=== PATIENT | female | born 1945 | race Caucasian/White ===

== ENCOUNTER 2017-01-17 16:46 | Emergency (ER) | payer MEDICARE, OTHER ==
[~2017-01-17] VITALS: Ht 162.6 cm; Wt 97.9 kg
[~2017-01-17 16:46] MED LIST: ACEB200C9 PO; ASCO10007 PO; BIOT1TAB16 PO; CHOL400T11 PO; CYAN10009 PO; MULT1TAB69 PO; SERT-77 PO; [UNRECOGNIZED DRUG - CODE] PO
--- OUTSIDE RECORDS SUMMARY | 2017-01-17 16:50 | XMS REPORT | Referral Summary ---
Author Author Via [facility], Family Medicine Organization Via [facility]ui [facility], [facility] Address Unknown Phone Unavailable Care Team Providers Care Elementary Assistant Teacher Name Role Phone Beena Howard Primary Care Physician [phone] Encounter VC Date(s): 05/04/16 - 05/04/16 [facility], [address] [place] [address] Discharge Disposition: 01-Home or Self Care Attending Physician: Sohail Jaime APRN Admitting Physician: Sohail Jaime APRN Vital Signs Most recent to 1 oldest [Reference Range]: Temperature Tympanic 36.8 degC [36.6-38.1 degC] (05/04/16 2:11 PM) Peripheral Pulse 90 bpm Rate [60-100 bpm] (05/04/16 2:11 PM) Blood Pressure 138/72 mmHg [90-140/60-90 mmHg] (05/04/16 2:11 PM) SpO2 94 % (05/04/16 2:11 PM) Problem List Condition Effective Dates Status Health Status Informant Anemia(Confirmed) Resolved Anxiety(Confirmed) Active Atrial Active fibrillation(Confirm ed) Cataracts(Confirmed) Active Cataracts(Confirmed) Resolved Depression(Confirmed Active ) Diabetes(Confirmed) Active Thyroid Active Disease/Goiter(Confi rmed) Glaucoma(Confirmed) Resolved Hearing Active loss(Confirmed) Hypertension(Confirm Active ed) Hypothyroid(Confirme Active d) IBS(Confirmed) Active Irregular Heart Active Rhythm(Confirmed) Multiple Active sclerosis(Confirmed) Sleep Active apnea(Confirmed) chicken 1950 Active griffin(Confirmed) Allergies, Adverse Reactions, Alerts Substance Reaction Severity Status penicillin Eczema (rash) Active RASH Medications biotin 1000 mcg oral tablet 1 tabs, Oral, Daily, # 30 tabs, 0 Refill(s) Start Date: 05/09/14 Status: Ordered levothyroxine 112 mcg (0.112 mg) oral tablet 112 mcg 1 tabs, Oral, Daily, # 90 tabs, 3 Refill(s), [facility], 1 tabs Oral Daily Start Date: 08/20/15 Status: Ordered multivitamin Daily, 0 Refill(s) Start Date: 05/14/14 Status: Ordered [place] 5 mg-325 mg oral tablet See Instructions, as needed for pain, 1 tabs Oral q6hr, # 20 tabs, 0 Refill(s) Start Date: 05/04/16 Status: Ordered predniSONE 20 mg oral tablet See Instructions, 3 po qd for 3 days, 2 po qd for 3 d, 1 po qd for 3 d, 1/2 pill po qd for 2d take with food, # 19 tabs, 0 Refill(s) Start Date: 05/03/16 Status: Ordered Sectral 200 mg oral capsule 1 caps, Oral, BID, 0 Refill(s) Start Date: 05/09/14 Status: Ordered sertraline 150 mg, Oral, Daily, 0 Refill(s) Start Date: 05/09/14 Status: Ordered Vitamin B12 1000 mcg oral tablet 2 tabs, Oral, Daily, 0 Refill(s) Start Date: 05/09/14 Status: Ordered Vitamin C 500 mg oral tablet 2 tabs, Oral, Daily, 0 Refill(s) Start Date: 05/09/14 Status: Ordered Vitamin D3 400 intl units oral tablet 2 tabs, Oral, Daily, 0 Refill(s) Start Date: 05/09/14 Status: Ordered Results No data available for this section Immunizations Vaccine Date Refusal Reason influenza virus vaccine, inactivated 08/14/14 pneumococcal 23-polyvalent vaccine 09/13/03 Procedures Procedure Date Related Diagnosis Body Site Normal colonoscopy1 07/08/15 Mammogram2 03/14/15 Bilat eye surgery - narrow angle glaucoma 2008 Moved pins and aaron in Rt lower leg 2008 Painful Hardware ACC 2008 Neck Lamectomy 2007 Cervical Fusion C5 and C6 2003 HR Rt Tibia BUHR 2003 Rt lower leg aaron 2001 Hysterectomy Tubal ligation 1Sigmoid diverticulosis, [facility] positive for colon [facility], [facility] Social History Social History Type Response Smoking Status Former smoker Assessment and Plan No data available for this section
--- OUTSIDE RECORDS SUMMARY | 2017-01-17 16:50 | XMS REPORT | Referral Summary ---
Author Author [facility], [facility] Medicine Organization [facility] Doyle [facility] Address Unknown Phone Unavailable Care Team Providers Care Rim Turning Finisher Name Role Phone Beena Howard Primary Care Physician [phone] Encounter VC Date(s): 08/20/15 - 08/20/15 [facility] Doyle [facility], [address] [place] [id number] Discharge Diagnosis: Hypothyroid Discharge Diagnosis: Depression Discharge Disposition: 01-Home or Self Care Attending Physician: Fanny Howard DO Admitting Physician: Fanny Howadr DO Vital Signs Most recent to 1 oldest [Reference Range]: Temperature Tympanic 36.9 degC [36.6-38.1 degC] (08/20/15 10:41 AM) Peripheral Pulse 66 bpm Rate [60-100 bpm] (08/20/15 10:41 AM) Respiratory Rate 16 br/min [14-20 br/min] (08/20/15 10:41 AM) Blood Pressure 120/80 mmHg [90-140/60-90 mmHg] (08/20/15 10:41 AM) SpO2 98 % (08/20/15 10:41 AM) Problem List Condition Effective Dates Status Health [...] # 90 tabs, 3 Refill(s), [facility], 1 tabs Oral Daily Start Date: 08/20/15 Status: Ordered multivitamin Daily, 0 Refill(s) Start Date: 05/14/14 Status: Ordered Sectral 200 mg oral capsule [...] [facility] Social History Social History Type Response Smoking Status Former smoker Assessment and Plan Extracted from: Title: Office Visit Note Author: Fanny Howard DO Date: 08/20/15 Assessment/Plan Depression Stable, continue current medication. Ordered: Office Visit Level 4 Est 69642 Hypothyroid Stable, she is not due for labs for several months. Ordered: Office Visit Level 4 Est 96810 Lumbar pain X-ray revealed no acute process, facet arthropathy, offered patient anti-inflammatories but she declined. She would like to use heatand [place],counseled that she could also use capsaicin cream. She will return to clinic if this is not effective. Ordered: Office Visit Level 4 Est [id number] Orders: levothyroxine, 112 mcg 1 tabs, Oral, Daily, # 90 tabs, 3 Refill(s), [facility]acy: [facility], 1 tabs Oral Daily
--- OUTSIDE RECORDS SUMMARY | 2017-01-17 16:50 | XMS REPORT | Referral Summary ---
Author Author Via [facility], Family Medicine Organization Via [facility] Bui [facility] Address Unknown Phone Unavailable Care Team Providers Care Dental Laboratory Manager Name Role Phone Beena Howard Primary Care Physician [phone] Encounter VC Date(s): 05/26/16 - 05/26/16 [facility] Doyle [place], [address] [place] [address] Discharge Disposition: 01-Home or Self Care Attending Physician: Sohail Jaime APRN Admitting Physician: Sohail Jaime APRN Referring Physician: Sohail Jaime APRN Vital Signs Most recent to 1 oldest [Reference Range]: Peripheral Pulse 72 bpm Rate [60-100 bpm] (05/26/16 8:22 AM) Respiratory Rate 18 br/min [14-20 br/min] (05/26/16 8:22 AM) Blood Pressure 118/78 mmHg [90-140/60-90 mmHg] (05/26/16 8:22 AM) SpO2 95 % (05/26/16 8:22 AM) Problem List Condition Effective Dates Status [...] 0 Refill(s) Start Date: 05/14/14 Status: Ordered [place] 5 mg-325 mg oral tablet See Instructions, [...] [facility] Social History Social History Type Response Smoking Status Former smoker Assessment and Plan No data available for this section
--- OUTSIDE RECORDS SUMMARY | 2017-01-17 16:50 | XMS REPORT | Referral Summary ---
Author Author Via [facility], Family Medicine Organization Via Dan[facility]BL[facility] Bui [facility], [facility] Address Unknown Phone Unavailable Care Team Providers Care Brazing Machine Operator Name Role Phone Beena Howard Primary Care Physician [phone] Encounter VC Date(s): 05/11/16 - 05/11/16 [facility] Doyle [place], [address] [place] [address] Discharge Disposition: 01-Home or Self Care Attending Physician: Sohail Jaime APRN Admitting Physician: Sohail Jaime APRN Referring Physician: Silas Granda III, MD Vital Signs Most recent to 1 oldest [Reference Range]: Peripheral Pulse 65 bpm Rate [60-100 bpm] (05/11/16 12:58 PM) Respiratory Rate 18 br/min [14-20 br/min] (05/11/16 12:58 PM) Blood Pressure 122/70 mmHg [90-140/60-90 mmHg] (05/11/16 12:58 PM) SpO2 95 % (05/11/16 12:58 PM) Problem List Condition Effective Dates Status [...] Daily, # 90 tabs, 3 Refill(s), Pharmacy: [facility], 1 tabs Oral Daily Start Date: 08/20/15 Status: Ordered multivitamin Daily, 0 Refill(s) Start Date: 05/14/14 Status: Ordered [place] 5 mg-325 mg oral tablet See Instructions, [...] Refill(s) Start Date: 05/09/14 Status: Ordered Results Hematology Most recent to 1 oldest [Reference Range]: WBC [4.8-10.8 17.2 10*3/uL 10*3/uL] *HI* (05/11/16 1:42 PM) RBC [4.00-5.20] 4.86 (05/11/16 1:42 PM) Hgb [12.0-16.0 14.2 gm/dL gm/dL] (05/11/16 1:42 PM) Hct [37.0-47.0 %] 44.6 % (05/11/16 1:42 PM) MCV [82.0-99.0 fL] 91.8 fL (05/11/16 1:42 PM) MCH [27.0-32.0 pg] 29.2 pg (05/11/16 1:42 PM) MCHC [32.0-36.0 31.8 gm/dL gm/dL] *LOW* (05/11/16 1:42 PM) RDW [11.5-14.5 %] 14.6 % *HI* (05/11/16 1:42 PM) Platelet [150-400 295 10*3/uL 10*3/uL] (05/11/16 1:42 PM) MPV [8.8-14.8 fL] 9.8 fL (05/11/16 1:42 PM) Immature 1.3 % Granulocytes *HI* [0.0-1.0 %] (05/11/16 1:42 PM) Neutrophils [51-75 74 % %] (05/11/16 1:42 PM) Lymphocytes [20-46 17 % %] *LOW* (05/11/16 1:42 PM) Monocytes [4-11 %] 7 % (05/11/16 1:42 PM) Eosinophils [0-4 %] 1 % (05/11/16 1:42 PM) Basophils [0-2 %] 0 % (05/11/16 1:42 PM) Neutro Absolute 12.68 10*3 [1.90-7.00 10*3] *HI* (05/11/16 1:42 PM) Lymph Absolute 2.84 10*3 [0.80-3.30 10*3] (05/11/16 1:42 PM) [place] Absolute 1.17 10*3 [0.30-1.00 10*3] *HI* (05/11/16 1:42 PM) Eos Absolute 0.16 10*3 [0.00-0.50 10*3] (05/11/16 1:42 PM) Baso Absolute 0.07 10*3 [0.00-0.20 10*3] (05/11/16 1:42 PM) Chemistry Most recent to 1 oldest [Reference Range]: Sodium Lvl [135-144 136 mEq/L mEq/L] (05/11/16 2:05 PM) Potassium Lvl 5.0 mEq/L [3.5-5.2 mEq/L] (05/11/16 2:05 PM) Chloride [99-111 98 mEq/L mEq/L] *LOW* (05/11/16 2:05 PM) CO2 [22-31 mEq/L] 28 mEq/L (05/11/16 2:05 PM) AGAP [3-20] 10 (05/11/16 2:05 PM) BUN [10-20 mg/dL] 22 mg/dL *HI* (05/11/16 2:05 PM) Glucose Lvl [70-99 196 mg/dL mg/dL] *HI* (05/11/16 2:05 PM) Creatinine Lvl 1.00 mg/dL [0.57-1.11 mg/dL] (05/11/16 2:05 PM) eGFR [>60 mL/min] 54 mL/min 1 *ABN* (05/11/16 2:05 PM) Calcium Lvl 9.4 mg/dL [8.9-10.5 mg/dL] (05/11/16 2:05 PM) 1Result Comment: Multiply eGFR results by 1.21 for race. Urinalysis Most recent to 1 oldest [Reference Range]: UA Color Yellow (05/11/16 2:05 PM) UA Appear Clear (05/11/16 2:05 PM) UA pH [5.0-8.0] 6.0 (05/11/16 2:05 PM) UA Leuk Est Pos 1+ [Negative] *ABN* (05/11/16 2:05 PM) UA Nitrite Negative [Negative] (05/11/16 2:05 PM) UA Protein Negative [Negative] (05/11/16 2:05 PM) UA Glucose Negative [Negative] (05/11/16 2:05 PM) UA Ketones Negative [Negative] (05/11/16 2:05 PM) UA Urobilinogen 0.2 mg/dL [<1.0 mg/dL] (05/11/16 2:05 PM) UA Bili [Negative] Negative (05/11/16 2:05 PM) UA Blood [Negative] Negative (05/11/16 2:05 PM) UA Spec Grav 1.020 [1.003-1.030] (05/11/16 2:05 PM) Type Clean Catch (05/11/16 2:05 PM) UA WBC [0-4] 5-10 *ABN* (05/11/16 2:05 PM) UA RBC [0-4] 0-4 (05/11/16 2:05 PM) Epithelial Cells 2-5 (05/11/16 2:05 PM) UA Hyal Cast [0-3] 1-3 (05/11/16 2:05 PM) Immunizations Vaccine Date Refusal Reason influenza virus [...] Tibia BUHR 2003 Rt lower leg aaron 2000 Hysterectomy Tubal ligation 1Sigmoid diverticulosis, father positive for colon [facility], [facility] Social History Social History Type Response Smoking Status Former smoker Assessment and Plan No data available for this section
--- OUTSIDE RECORDS SUMMARY | 2017-01-17 16:50 | XMS REPORT | Referral Summary ---
Author Author Via [facility] Doyle [facility], Family Medicine Organization Via Dan[facility]BL[facility] Bui [facility] Address Unknown Phone Unavailable Care Team Providers Care Network/Telecom Engineer Name Role Phone Beena Howard Primary Care Physician [phone] Encounter VC Date(s): 02/25/16 - 02/25/16 Via BLANCA Doyel [facility], [address] [place] [address] Discharge Disposition: 01-Home or Self Care Attending Physician: Sohail Jaime APRN Admitting Physician: Sohail Jaime APRN Vital Signs Most recent to 1 oldest [Reference Range]: Temperature Tympanic 36.8 degC [36.6-38.1 degC] (02/25/16 8:05 AM) Peripheral Pulse 69 bpm Rate [60-100 bpm] (02/25/16 8:05 AM) Respiratory Rate 16 br/min [14-20 br/min] (02/25/16 8:05 AM) Blood Pressure 130/70 mmHg [90-140/60-90 mmHg] (02/25/16 8:05 AM) SpO2 98 % (02/25/16 8:05 AM) Problem List Condition Effective Dates Status [...] Refill(s) Start Date: 05/09/14 Status: Ordered Results Chemistry Most recent to 1 oldest [Reference Range]: Sodium Lvl [135-144 141 mEq/L mEq/L] (02/25/16 8:56 AM) Potassium Lvl 4.5 mEq/L [3.5-5.2 mEq/L] (02/25/16 8:56 AM) Chloride [99-111 101 mEq/L mEq/L] (02/25/16 8:56 AM) CO2 [22-31 mEq/L] 29 mEq/L (02/25/16 8:56 AM) AGAP [3-20] 11 (02/25/16 8:56 AM) BUN [10-20 mg/dL] 10 mg/dL (02/25/16 8:56 AM) Glucose Lvl [70-99 139 mg/dL mg/dL] *HI* (02/25/16 8:56 AM) Creatinine Lvl 0.72 mg/dL [0.57-1.11 mg/dL] (02/25/16 8:56 AM) eGFR [>60 mL/min] >60 mL/min 1 (02/25/16 8:56 AM) Calcium Lvl 9.6 mg/dL [8.9-10.5 mg/dL] (02/25/16 8:56 AM) Chol [0-199 mg/dL] 168 mg/dL (02/25/16 8:56 AM) Trig [0-149 mg/dL] 141 mg/dL (02/25/16 8:56 AM) HDL [40-84 mg/dL] 45 mg/dL (02/25/16 8:56 AM) LDL [0-130 mg/dL] 95 mg/dL (02/25/16 8:56 AM) VLDL Cholesterol 28 mg/dL [0-28 mg/dL] (02/25/16 8:56 AM) Cardiac Risk 3.7 [0.0-5.0] (02/25/16 8:56 AM) TSH with Reflex Free 3.59 T4 [0.35-4.94] (02/25/16 8:56 AM) Hgb A1c [4.1-5.6 %] 6.5 % *HI* (02/25/16 8:56 AM) eAvg Glucose 139.9 mg/dL (02/25/16 8:56 AM) 1Result Comment: Multiply eGFR results by 1.21 for race. Immunizations Vaccine Date Refusal Reason influenza virus [...] for [facility], [facility] Social History Social History Type Response Smoking Status Former smoker Assessment and Plan No data available for this section
--- OUTSIDE RECORDS SUMMARY | 2017-01-17 16:50 | XMS REPORT | Referral Summary ---
Author Author [facility] Organization [facility] Address Unknown Phone Unavailable Care Team Providers Care Biological Inspector Name Role Phone Beena Howard Primary Care Physician [phone] Encounter VC Date(s): 05/03/16 - 05/03/16 [facility] [address] [place] [address] Discharge Diagnosis: Acute low back pain Discharge Diagnosis: Chronic lower back pain Discharge Disposition: 01-Home or Self Care Attending Physician: Nilton Edmond DO Admitting Physician: Nilton Edmond DO Vital Signs Most recent to 1 oldest [Reference Range]: Temperature Oral 36.7 degC [35.8-37.3 degC] (05/03/16 12:42 PM) Peripheral Pulse 75 bpm Rate [60-100 bpm] (05/03/16 5:22 PM) Respiratory Rate 18 br/min [14-20 br/min] (05/03/16 5:22 PM) Blood Pressure 134/54 mmHg [90-140/60-90 mmHg] (05/03/16 5:22 PM) SpO2 93 % (05/03/16 5:22 PM) Problem List Condition Effective Dates Status [...] # 90 tabs, 3 Refill(s), [facility], 1 tabs Oral Daily Start Date: 08/20/15 Status: Ordered multivitamin Daily, 0 Refill(s) Start Date: 05/14/14 Status: Ordered [place] 5 mg-325 mg oral tablet 1 tabs, Oral, q6hr, as needed for pain, X 2 days, # 8 tabs, 0 Refill(s) Start Date: 05/03/16 Stop Date: 05/05/16 Status: Ordered predniSONE 20 mg oral tablet [...] [facility] Social History Social History Type Response Smoking Status Former smoker Assessment and Plan No data available for this section
--- OUTSIDE RECORDS SUMMARY | 2017-01-17 16:50 | XMS REPORT | Referral Summary ---
Author Author [facility] Doyle [facility], Family Medicine Organization Via BLAN[facility] Doyle [facility] Address Unknown Phone Unavailable Care Team Providers Care Typing Checker Name Role Phone Beena Howard Primary Care Physician [phone] Encounter VC Date(s): 08/20/15 - 08/20/15 [facility] Doyle [facility], [address] [place] [address] Discharge Diagnosis: Hypothyroid Discharge Diagnosis: Depression Discharge Disposition: 01-Home or Self Care Attending Physician: Fanny Howard DO Admitting Physician: Fanny Howard DO Vital Signs Most recent to 1 [...] # 90 tabs, 3 Refill(s), [facility], 1 tabs Oral Daily Start [...] [facility], [facility] Social History Social History Type Response Smoking Status Former smoker Assessment and Plan Extracted from: Title: Office Visit Note Author: Fanny Howard DO Date: 08/20/15 Assessment/Plan Depression Stable, continue current medication. Ordered: Office Visit Level 4 Est 49352 Hypothyroid Stable, she is not due for labs for several months. Ordered: Office Visit Level 4 Est 57671 Lumbar pain X-ray revealed no acute process, facet arthropathy, offered patient anti-inflammatories but she declined. She would like to use heatand [place],counseled that she could also use capsaicin cream. She will return to clinic if this is not effective. Ordered: Office Visit Level 4 Est 77741 Orders: levothyroxine, 112 mcg 1 tabs, Oral, Daily, # 90 tabs, 3 Refill(s), [facility]acy: [facility], 1 tabs Oral Daily
--- OUTSIDE RECORDS SUMMARY | 2017-01-17 16:50 | XMS REPORT | Referral Summary ---
Author Author [facility], Surgery Organization [facility] Doyle, [facility] Address Unknown Phone Unavailable Care Team Providers Care Rocket Motor Mechanic Name Role Phone Beena Howard Primary Care Physician [phone] Encounter VC Date(s): 07/08/15 - 07/08/15 [facility] Doyle, [facility], Surgery [address] [place] [address] [place] [address] Discharge Disposition: 01-Home or Self Care Attending Physician: En Miles MD Admitting Physician: En Miles MD Vital Signs No data available for this section Problem List Condition Effective Dates Status Health [...] Daily, # 90 tabs, 3 Refill(s), Pharmacy: [facility], 1 tabs Oral Daily Start [...] Procedures Procedure Date Related Diagnosis Body Site Colonoscopy, flexible; diagnostic, including 07/08/15 collection of specimen(s) by brushing or washing, when performed (separate procedure) Normal colonoscopy1 07/08/15 Mammogram2 03/14/15 Bilat eye surgery - narrow angle glaucoma 2008 Moved pins and aaron in Rt lower leg 2008 Painful Hardware ACC 2008 Neck Lamectomy 2007 Cervical Fusion C5 and C6 2003 HR Rt Tibia BUHR 2003 Rt lower leg aaron 2000 Hysterectomy Tubal ligation 1Sigmoid diverticulosis, [facility] positive for colon [facility], [facility] Social History Social History Type Response Smoking Status Former smoker Assessment and Plan No data available for this section
--- OUTSIDE RECORDS SUMMARY | 2017-01-17 16:50 | XMS REPORT | Referral Summary ---
Author Author [facility], Family Medicine Organization [facility] Bui [facility] Address Unknown Phone Unavailable Care Team Providers Care Director Of Epidemiology Name Role Phone Beena Howard Primary Care Physician [phone] Encounter VC Date(s): 03/02/16 - 03/02/16 [facility] Doyle [facility], [address] [place] [address] Discharge Disposition: 01-Home or Self Care Attending Physician: Sohail Jaime APRN Admitting Physician: Sohail Jaime APRN Vital Signs Most recent to 1 oldest [Reference Range]: Peripheral Pulse 69 bpm Rate [60-100 bpm] (03/02/16 9:29 AM) Blood Pressure 135/60 mmHg [90-140/60-90 mmHg] (03/02/16 9:29 AM) SpO2 97 % (03/02/16 9:29 AM) Problem List Condition Effective Dates Status [...] Daily, # 90 tabs, 3 Refill(s), Pharmacy: [facility], 1 tabs Oral Daily Start [...] [facility], [facility] Social History Social History Type Response Smoking Status Former smoker Assessment and Plan No data available for this section
--- OUTSIDE RECORDS SUMMARY | 2017-01-17 16:50 | XMS REPORT | Referral Summary ---
Author Author [facility], Family Medicine Organization [facility] Address Unknown Phone Unavailable Care Team Providers Care Spray Dyer Name Role Phone Beena Howard Primary Care Physician [phone] Encounter VC Date(s): 04/19/15 - 04/19/15 [facility], [address] [place] [id number] Discharge Diagnosis: Diabetes Discharge Diagnosis: Depression Discharge Diagnosis: Skin lesion Discharge Diagnosis: Sleep apnea Discharge Disposition: 01-Home or Self Care Attending Physician: Gem Romero MD Admitting Physician: Gem Romero MD Vital Signs Most recent to 1 oldest [Reference Range]: Temperature Tympanic 36.9 degC [36.6-38.1 degC] (04/19/15 8:32 AM) Peripheral Pulse 72 bpm Rate [60-100 bpm] (04/19/15 8:32 AM) Respiratory Rate 17 br/min [14-20 br/min] (04/19/15 8:32 AM) Blood Pressure 128/68 mmHg [90-140/60-90 mmHg] (04/19/15 8:32 AM) Problem List Condition Effective Dates Status [...] for colon cancer, repeat in 5 years [facility] Social History Social History Type Response Smoking Status Former smoker Assessment and Plan Extracted from: Title: Ambulatory Patient Education Author: Gem Romero MD Date: 04/19/15 Family Medicine Diabetes Meal Planning Guide The diabetes meal planning guide is a tool to help you plan your meals and snacks. It is important for people with diabetes to manage their blood glucose ( sugar ) levels. Choosing the right foods and the right amounts throughout your day will help control your blood glucose. Eating right can even help you improve your blood pressure and reach or maintain a healthy weight. CARBOHYDRATE COUNTING MADE EASY When you eat carbohydrates, they turn to sugar. This raises your blood glucose level. Counting carbohydrates can help you control this level so you feel better. When you plan your meals by counting carbohydrates, you can have more flexibility in what you eat and balance your medicine with your food intake. Carbohydrate counting simply means adding up the total amount of carbohydrate grams in your meals and snacks. Try to eat about the same amount at each meal. Foods with carbohydrates are listed below. Each portion below is 1 carbohydrate serving or 15 grams of carbohydrates. Ask your supervisor metal cans how many grams of carbohydrates you should eat at each meal or snack. Grains and Starches 1 slice bread. Austrian muffin or hotdog/hamburger bun. cup cold cereal (unsweetened). cup cooked pasta or rice. cup starchy vegetables (corn, potatoes, peas, beans, winter squash). 1 tortilla (6 inches). bagel. 1 waffle or pancake (size of a CD). cup cooked cereal. 4 to 6 small crackers. *Whole grain is recommended. Fruit 1 cup fresh unsweetened berries, melon, papaya, pineapple. 1 small fresh fruit. banana or mey. cup fruit juice (4 oz unsweetened). cup canned fruit in natural juice or water. 2 tbs dried fruit. 12 to 15 grapes or cherries. Milk and Yogurt 1 cup fat-free or 1% milk. 1 cup soy milk. 6 oz light yogurt with sugar-free sweetener. 6 oz low-fat soy yogurt. 6 oz plain yogurt. Vegetables 1 cup raw or cup cooked is counted as 0 carbohydrates or a "free" food. If you eat 3 or more servings at 1 meal, count them as 1 carbohydrate serving. Other Carbohydrates oz chips or pretzels. cup ice cream or frozen yogurt. cup sherbet or sorbet. 2 inch square cake, no frosting. 1 tbs honey, sugar, jam, jelly, or syrup. 2 small cookies. 3 squares of roxanne crackers. 3 cups popcorn. 6 crackers. 1 cup broth-based soup. Count 1 cup casserole or other mixed foods as 2 carbohydrate servings. Foods with less than 20 calories in a serving may be counted as 0 carbohydrates or a "free" food. You may want to purchase a book or computer software that lists the carbohydrate gram counts of different foods. In addition, the nutrition facts panel on the labels of the foods you eat are a good source of this information. The label will tell you how big the serving size is and the total number of carbohydrate grams you will be eating per serving. Divide this number by 15 to obtain the number of carbohydrate servings in a portion. Remember, 1 carbohydrate serving equals 15 grams of carbohydrate. SERVING SIZES Measuring foods and serving sizes helps you make sure you are getting the right amount of food. The list below tells how big or small some common serving sizes are. 1 oz.........4 stacked dice. 3 oz.........Deck of cards. 1 tsp........Tip of little finger. 1 tbs........Thumb. 2 tbs........Golf ball. cup.......Half of a fist. 1 cup........A fist. SAMPLE DIABETES MEAL PLAN Below is a sample meal plan that includes foods from the grain and starches, dairy, vegetable, fruit, and meat groups. A supervisor metal cans can individualize a meal plan to fit your calorie needs and tell you the number of servings needed from each food group. However, controlling the total amount of carbohydrates in your meal or snack is more important than making sure you include all of the food groups at every meal. You may interchange carbohydrate containing foods (dairy, starches, and fruits). The meal plan below is an example of a 2000 calorie diet using carbohydrate counting. This meal plan has 17 carbohydrate servings. Breakfast 1 cup oatmeal (2 carb servings). cup light yogurt (1 carb serving). 1 cup blueberries (1 carb serving). cup almonds. Snack 1 large apple (2 carb servings). 1 low-fat string cheese stick. Lunch Chicken breast salad. 1 cup spinach. cup chopped tomatoes. 2 oz chicken breast, sliced. 2 tbs low-fat Gabonese dressing. 12 whole-wheat crackers (2 carb servings). 12 to 15 grapes (1 carb serving). 1 cup low-fat milk (1 carb serving). Snack 1 cup carrots. cup hummus (1 carb serving). Dinner 3 oz broiled salmon. 1 cup brown rice (3 carb servings). Snack 1 cups steamed broccoli (1 carb serving) drizzled with 1 tsp olive oil and lemon juice. 1 cup light pudding (2 carb servings). DIABETES MEAL PLANNING WORKSHEET Your supervisor metal cans can use this worksheet to help you decide how many servings of foods and what types of foods are right for you. BREAKFAST Food Group and Servings / Carb Servings Grain/Starches Dairy Vegetable Fruit Meat Fat LUNCH Food Group and Servings / Carb Servings Grain/Starches Dairy Fruit Meat Fat DINNER Food Group and Servings / Carb Servings Grain/Starches Dairy Fruit Meat Fat SNACKS Food Group and Servings / Carb Servings Grain/Starches Dairy Vegetable Fruit Meat Fat DAILY TOTALS Starches Vegetable Fruit Dairy Meat Fat Document Released: 07/08/2006 Document Revised: 01/02/2013 Document Reviewed: [employer] Patient Information [address] [place] [address]. No follow up information was provided. Extracted from: Title: Office Visit Note Author: Gem Romero MD Date: 04/19/15 Assessment/Plan Depression Diabetes Recheck in 6 months. Skin lesion appt with Dr. Sanches for lesion removal. Sleep apnea
[2017-01-17 16:57] VITALS: Ht 162.6 cm; Wt 97.9 kg
--- NOTE | 2017-01-17 17:24 | NUR ---
RADIOLOGY PT TO RADIOLOGY PER WC
--- NOTE | 2017-01-17 17:36 | NUR ---
ROOM PT RETURNED FROM [facility] TO [facility] AT THIS TIME.
[2017-01-17] MEDS ORDERED: CARB15DR82 OP (17:53)
[2017-01-17] MEDS ORDERED: TURM500C8 PO (17:53)
--- NOTE | 2017-01-17 18:03 | ERPDOC ---
Departure Disposition Decision Date: Jan 17, 2017 Disposition Decision Time: 18:57 Disposition: 01 DISCHARGED HOME, SELF-CARE Impression Impression Impression: Primary Impression: Closed fracture of right proximal humerus Encounter type: initial encounter Fracture morphology: other fracture Fracture alignment: nondisplaced Qualified Codes: S42.294A - Other nondisplaced fracture of upper end of right humerus, initial encounter for closed fracture Severity: Moderate Condition: Stable Seen By: Physician only Referrals: DOMINIC JOHNSON DO (Family) BOLIVAR OROZCO Call the office on Wednesday for Wednesday appointment Patient Instructions: Proximal Humerus Fracture (ED) Problems/Meds/Labs Reviewed?: Yes Medications reviewed and manag: Yes Follow up care ordered?: Yes Mental Status: Alert, Oriented Scripts Hydrocodone/Acetaminophen ([place] 5-325 Tablet) 5-325 Tablet 1-2 TAB PO Q6H Y for PAIN, #30 TAB Prov: CHARITO RAMIREZ MD 01/17/17 HPI - Fall/Injury General Chief Complaint: Fall Stated Complaint: FALL, PAIN R ARM Time Seen by Provider: 18:02 Source: patient, family Exam Limitations: no limitations HPI - Fall/Injury Initial Comments Patient is a 71-year-old female presents to respiratory for evaluation of right upper extremity pain. Patient was a daughter's house tripped and fell on outstretched arm. Patient had immediate pain in her shoulder and forearm, drove to [place] and decided to present to the ER for evaluation. Pain currently 8/10 Occurred At: other (daughter's house) Onset: Rapid Duration: 1 hr Pain Scale: Now & Worst: 8/10 Injuries/Pain Location: upper extremity 1 - Pain 2 - Pain Context: lost balance Loss of Consciousness: no loss of consciousness Allergies: Coded Allergies: Penicillins (Verified Allergy, Unknown, SKIN RASH, 03/25/10) Tetanus Vaccines & Toxoid (Verified Allergy, Unknown, 03/25/10) Past History Past Medical History Metabolic: hypothyroidism ENMT: sleep apnea Cardiac: A-fib Neurological: multiple sclerosis Musculoskeletal: osteoarthritis Psychological: anxiety, depression Surgical History General: back, gallbladder, neck Reproductive/: hysterectomy, tubal ligation Vaccines Hx Influenza Vaccination: Yes (FALL 2013) Hx Pneumococcal Vaccination: Yes (WITHIN PAST 5 YEARS) Social History Smoking Status: Former smoker Substance Use Type: does not use Alcohol Intake: occasionally Review of Systems Constitutional Constitutional: DENIES: chills, dizziness, fever Eyes Vision: DENIES: blurring, double vision, loss of visual castillo ENMT Sinuses: DENIES: congestion Mouth/Throat: DENIES: sore throat Cardiovascular Cardiac: DENIES: chest pain, dyspnea on exertion Pulmonary Respiratory: DENIES: cough, dyspnea, sputum, tachypnea GI Upper Abdomen: DENIES: nausea, pain, vomiting Lower Abdomen: DENIES: constipation, diarrhea, pain Musculoskeletal General: see HPI Endocrine Endocrine: DENIES: heat/cold intolerance Physical Exam General General Nourishment: well nourished, well developed, obese General Body Habitus: well groomed Vitals and Pain First Documented Vital Signs Date Time Temp Pulse Resp B/P Pulse Ox O2 Delivery O2 Flow Rate FiO2 01/17/17 16:57 97.6 77 20 174/81 95 Room Air Weight: Kilograms: 97.900 Height (feet): 5 Height (inches): 4.00 Triage Pain Scale: RN VS reviewed by Provider: Yes Eyes (brief) Eyes Brief: found: EOMI ENMT (brief) ENMT Brief: FOUND: mucosa moist, normal dentition, NOT FOUND: nasal erythema, pharnyx erythema, tonsillar deviation Neck (brief) Neck: NOT FOUND: adenopathy, spasm, tenderness Respiratory (brief) Respiratory: FOUND: clear all castillo, equal bilaterally, NOT FOUND: rales, wheezes Cardiovascular (brief) Cardiac: FOUND: regular rate, regular rhythm Capillary Refill: <2 sec Abdomen (brief) Abdominal Brief: FOUND: bowel normo active x4, soft, NOT FOUND: distended, tender Lymphatic (brief) Lymphatic Brief: NOT FOUND: adenopathy Musculoskeletal (brief) Musculoskeletal Brief: NOT FOUND: spasm, tenderness Fastrak Hand/Forearm Hand/Forearm : Upper Extremity: Right Elbow: NOT FOUND: deformity, ecchymosis, erythema, swelling Forearm: other (tenderness to palpation), pronation intact, supination intact, NOT FOUND: deformity, ecchymosis, erythema, swelling, tender Wrist: NOT FOUND: ecchymosis, erythema, swelling Hand: NOT FOUND: ecchymosis, erythema, swelling Fingers: NOT FOUND: impaired abduction, impaired adduction, impaired extension, impaired flexion, impaired grasp, rotational deformity Radial Pulse: 2+ Ulnar Pulse: 2+ Fastrak Shoulder Shoulder : Shoulder: Right Inspection: NOT FOUND asymmetry, NOT FOUND deformity Palpation: FOUND tenderness (surgical neck), NOT FOUND empty shoulder socket , NOT FOUND infraspinatus, NOT FOUND muscular spasm teres minor, NOT FOUND subscapularis, NOT FOUND supraspinatus Motion: FOUND ROM limited ext. rotation, FOUND ROM limited extension, NOT FOUND ROM limited flexion, NOT FOUND impingement sign Integumentary (brief) Integumentary Brief: FOUND: dry, pink, warm Neurologic (brief) Neurological Brief: FOUND: motor-no gross deficits, sensory-no gross deficits Psychiatric (brief) Psychiatric Brief: FOUND: alert, oriented Differential Diagnoses Considering: Dislocation, Fracture, Sprain, Strain Progress Results/Orders Orders Procedure Category Date Status Time Humerus Right 2 View RAD 01/17/17 Resulted 17:10 Hydrocodone/Acetaminophen PHA 01/17/17 Complete ([place] 7.5/325 18:30 Radius/Ulna Right 2 RAD 01/17/17 Resulted View 18:17 Hydrocodone/Apap PHA 01/17/17 Complete 5/325 Prepack ([place] 5 19:15 Sling EDM 01/17/17 Transmitted 19:02 Medications Current ED Medications Acetaminophen/ Hydrocodone Bitart ([place] 7.5/325) 1 tab O ONCE PO Last administered on 01/17/17t 18:30; Start 01/17/17 at 18:30; Stop 01/17/17 at 18:31 ; Status DC Acetaminophen/ Hydrocodone Bitart ([place] 5 (PrePack)) 1 pack O ONCE SENT HOME Last administered on 01/17/17t 19:28; Start 01/17/17 at 19:15; Stop 01/17/17 at 19:16; Status DC Progress Progress Discussed case with Bolivar Hudson, shoulder immobilizer pain control have patient call the office tomorrow for follow-up appointment on Wednesday Xray Xray #1: Xray: Humerus R Interpretation: Abnormal, Interpreted by Me (surgical neck fracture) Xray #2: Xray: Radius/Ulna R Interpretation: Normal, Interpreted by Me (no acute fractures or dislocations noted) CHARITO RAMIREZ MD Jan 17, 2017 18:03
--- NOTE | 2017-01-17 18:16 | NUR ---
PROVIDER DR. RAMIREZ AT BEDSIDE FOR EXAM.
--- NOTE | 2017-01-17 18:31 | NUR ---
XRAY PT TO XRAY BY W/C AT THIS TIME.
--- NOTE | 2017-01-17 18:45 | NUR ---
RETURN PT RETURNED TO [facility] BY W/C AT THIS TIME.
--- NOTE | 2017-01-17 18:55 | NUR ---
PROVIDER DR. RAMIREZ AT BEDSIDE TO SPEAK WITH PT.
[2017-01-17] MEDS ORDERED: HYDR-4246 PO (18:59)
[2017-01-17] MEDS ORDERED: HYDROCODONE/APAP 5/325 (PrePack) SENT HOME ONE (19:15)
[2017-01-17 19:28] VITALS: BP 146/70; PULSE 63; RESP 18; TEMP 97.6; O2SAT 94
--- NOTE | 2017-01-17 19:28 | NUR ---
DEPART PT AND SPOUSE GIVEN DI FOR PROXIMAL HUMERUS FRACTURE, NORCO, AND F/U. PREPAK/RX PROVIDED FOR NORCO. BOTH VERBALIZE UNDERSTANDING OF DI AND NEED FOR F/U. QUESTIONS ASKED/ANSWERED - DENIES FURTHER QUESTIONS/NEEDS AT THIS TIME. RIGHT ARM PLACED IN SLING. PT ESCORTED TO ED EXIT VIA WHEEL CHAIR AND ASSISTED TO PRIVATE VEHICLE - ASSIST X1. GAIT STABLE FROM WHEEL CHAIR TO PRIVATE VEHICLE. NO SIGN OF DISTRESS.
--- NOTE | 2017-01-17 21:15 | DI ---
Indication: ITS.REASON: FALL WITH PAIN PROCEDURE: HUMERUS RIGHT 2 VIEW: Encounter: Initial Comparison: None Findings: Mildly displaced fracture of the right humeral head involving the greater tuberosity. No additional acute fracture or dislocation seen. Impression: Closed posttraumatic right humeral head fracture. .
--- NOTE | 2017-01-17 21:16 | DI ---
Indication: ITS.REASON: fall, pain difficulty with movement PROCEDURE: RADIUS/ULNA RIGHT 2 VIEW: Encounter: Initial Comparison: None Findings: There is no acute fracture, dislocation or malalignment identified. Impression: No acute osseous abnormality. .
== END 2017-01-17 19:28 | disposition home or self-care (01) ==
LOC: ED 16:46
DX: S42.294A Other nondisplaced fracture of upper end of right humerus, initial encounter for closed fracture (principal); W01.0XXA Fall on same level from slipping, tripping and stumbling without subsequent striking against object, initial encounter; Y93.9 Activity, unspecified; Y92.009 Unspecified place in unspecified non-institutional (private) residence as the place of occurrence of the external cause; Y99.8 Other external cause status
CPT/HCPCS: 73060; 73090; 99283; A9270